=== PATIENT | male | born 1995 | race Caucasian/White ===

== ENCOUNTER 2017-03-18 08:03 | Emergency (ER) | payer OTHER ==
[~2017-03-18] VITALS: Ht 170.2 cm; Wt 74.0 kg
[2017-03-18 08:06] VITALS: Ht 170.2 cm; Wt 74.0 kg
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
--- NOTE | 2017-03-18 09:27 | RADRPT ---
PROCEDURE: XR right femur. CLINICAL INDICATION: Pain following injury TECHNIQUE: AP and lateral views of the right femur were performed. COMPARISON: Right hip x-rays performed concurrently FINDINGS: The osseous structures demonstrate normal alignment and mineralization. No acute fracture or disloc ation is seen. No osteochondral lesion or periostitis is identified. Again noted are small round de nsities along the medial margin of the right femoral neck. IMPRESSION: 1. No acute fracture identified. 2. Small round densities along the medial margin of the right femoral neck, may be artifactual or o verlying the patient. Consider a cross-table lateral view for further localization and evaluation. RPTAT: HH .Cat Gottlieb MD, MD Date Time Electronically viewed and signed by .Cat Gottlieb MD, on 03/18/2017 09:27 .G/
--- NOTE | 2017-03-18 09:33 | RADRPT ---
PROCEDURE: XR Foot. CLINICAL INDICATION: Left foot pain following trauma TECHNIQUE: 3 views of the left foot are available for review. COMPARISON: None available FINDINGS: The osseous structures demonstrate normal alignment and mineralization. No acute fracture or disloc ation is seen. There is no periostitis or osteochondral lesion identified. The joint spaces are wel l preserved. The soft tissues are unremarkable. IMPRESSION: Unremarkable left foot x-ray series. RPTAT: HH .Cat Gottlieb MD, MD Date Time Electronically viewed and signed by .Cat Gottlieb MD, on 03/18/2017 09:32 .G/
--- NOTE | 2017-03-18 09:49 | RADRPT ---
PROCEDURE: XR Thumb. CLINICAL INDICATION: Right thumb pain following injury. TECHNIQUE: 3 views of the right thumb are available for review. COMPARISON: None available FINDINGS: The osseous structures demonstrate normal alignment and mineralization. No acute fracture or disloc ation is seen. The joint spaces are well preserved. The surrounding soft tissues are unremarkable. No radiopaque foreign body is identified. IMPRESSION: Unremarkable right thumb x-ray series. RPTAT: HH .Cat Gottlieb MD, MD Date Time Electronically viewed and signed by .Cat Gottlieb MD, on 03/18/2017 09:48 .G/
[2017-03-18] MEDS ORDERED: IBUP-1542 PO (10:14)
[2017-03-18] MEDS ORDERED: HYDR-906 PO (10:14)
[2017-03-18 10:54] VITALS: BP 128/70; PULSE 68; RESP 18; TEMP 98.2
== END 2017-03-18 10:55 | disposition home or self-care (01) ==
LOC: FTE 08:03
DX: S63.601A Unspecified sprain of right thumb, initial encounter (principal); S70.01XA Contusion of right hip, initial encounter; S93.602A Unspecified sprain of left foot, initial encounter; S43.401A Unspecified sprain of right shoulder joint, initial encounter; V49.40XA Driver injured in collision with unspecified motor vehicles in traffic accident, initial encounter
CPT/HCPCS: 73140; 73510; 73550; 73630; Z7502; L3260-LT